=== PATIENT | male | born 1985 | race Caucasian/White ===

== ENCOUNTER 2020-04-09 07:21 | Emergency (ER) | payer MEDICAID ==
[~2020-04-09] VITALS: Ht 170.2 cm; Wt 99.8 kg
[2020-04-09 07:21] VITALS: BP_SYST 143
--- NOTE | 2020-04-09 07:21 | NUR ---
Placed in room 4. Placed on residential monitor, blood pressure machine and pulse oximeter. To gown for exam. Side rails up. Report given to ELMO Chaidez.
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
--- NOTE | 2020-04-09 07:24 | NUR ---
ER Dr. Rios at bedside examining patient.
[2020-04-09] MEDS ORDERED: MORPHINE 2 MG/ML INJ. SYRINGE IVP ONE (07:30)
[2020-04-09] MEDS ORDERED: NACL 0.9% 1,000 ML IV ONE (07:30)
--- NOTE | 2020-04-09 07:30 | NUR ---
# 22 gauge angiocath placed to LFA. Use of asceptic technique. Opsite placed over site. Blood return noted. Blood for lab drawn from site. Flushed with 10 cc of normal saline. No evidence of infiltration noted. Patient tolerated well.
--- NOTE | 2020-04-09 07:35 | NUR ---
Administered Fentanyl and Benadryl IVP as ordered by Dr. Penny. Patient tolerated the medications well. See eMAR for details.
[2020-04-09] MEDS ORDERED: fentaNYL CITRATE/PF 100 MCG/2 ML AMP IVP ONE (07:45)
[2020-04-09] MEDS ORDERED: DIPHENHYDRAMINE INJ 50 MG/ML VIAL IVP ONE (07:45)
--- NOTE | 2020-04-09 07:45 | NUR ---
[place] [employer] officer at bedside.
[2020-04-09] MEDS ORDERED: fentaNYL CITRATE/PF 100 MCG/2 ML AMP ONE (07:56)
[2020-04-09] MEDS ORDERED: DIPHENHYDRAMINE INJ 50 MG/ML VIAL ONE (07:56)
[2020-04-09 09:08] VITALS: BP_SYST 119
--- NOTE | 2020-04-09 09:10 | NUR ---
Report given to ELMO Villela of [facility].
--- NOTE | 2020-04-09 09:15 | NUR ---
Patient to be transferred to [facility]. Is being transferred due to higher level of care. Receiving facility has accepting physician and available space. ER physician has signed transfer form. Patient or responsible libertarian has agreed to transfer and signed form. Patient belongings inventoried and will be sent with patient. Copy of nursing notes, lab reports, EKG, Physicians Orders and X-rays to be sent with patient. Report called to ELMO Villela at receiving facility. Receiving physician is Dr. Araujo. [facility] service has been called for transfer. ETA is 30.
== END 2020-04-09 09:08 | disposition home or self-care (01) ==
LOC: SED 07:21
DX: S91.301A Unspecified open wound, right foot, initial encounter (principal); F12.90 Cannabis use, unspecified, uncomplicated; Z88.5 Allergy status to narcotic agent; Z88.6 Allergy status to analgesic agent; W34.09XA Accidental discharge from other specified firearms, initial encounter; Y93.89 Activity, other specified; Y92.89 Other specified places as the place of occurrence of the external cause; Y99.8 Other external cause status
CPT/HCPCS: 73630; 96374; 96375; 99285; J1200; J3010; J7030

== ENCOUNTER 2020-08-20 18:55 | Emergency (ER) | payer MEDICAID ==
[~2020-08-20] VITALS: Ht 167.6 cm; Wt 108.9 kg
[2020-08-20 18:55] VITALS: BP_SYST 143
--- NOTE | 2020-08-20 18:55 | NUR ---
BROUGHT IN BY [facility] AND [facility], PLACED IN BED #3 AND REPORT GIVEN TO PROFESSOR OF MATHEMATICS NURSES.
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
--- NOTE | 2020-08-20 19:10 | NUR ---
SHERIFF DUPREE REPORTS NO LONGER NEEDING OK TO BOOK. PATIENT IS NO LONGER IN CUSTODY.
--- NOTE | 2020-08-20 19:57 | NUR ---
ER at bedside examining patient.
--- NOTE | 2020-08-20 20:00 | NUR ---
PATIENT NOW DENIES ANY DRUG OR ALCOHOL USE. PATIENT STATES HE IS JUST TIRED. NOTIFIED.
--- NOTE | 2020-08-20 20:10 | NUR ---
# 18 gauge angiocath placed to RAC. Use of asceptic technique. Opsite placed over site. Blood return noted. Blood for lab drawn from site. Flushed with 10 cc of normal saline. No evidence of infiltration noted. Patient tolerated well.
--- NOTE | 2020-08-20 20:18 | NUR ---
Patient transported to radiology via [facility], accompanied by SY HICKS
[2020-08-20 20:30] LABS: BASOPHILS # (AUTO) 0.1 K/uL (0.0-0.2); BASOPHILS % (AUTO) 0.9 % (0.0-2.0); EOSINOPHILS # (AUTO) 0.2 K/uL (0.0-0.4); EOSINOPHILS % (AUTO) 2.4 % (0.0-4.0); HEMATOCRIT 41.3 % (36-54); HEMOGLOBIN 14.3 g/dL (14.0-18.0); LYMPHOCYTES # (AUTO) 1.7 K/uL (1.0-5.5); LYMPHOCYTES % (AUTO) 21.3 % (20.5-51.5); MEAN CORPUSCULAR HEMOGLOBIN 31 pg (27-31); MEAN CORPUSCULAR HGB CONC 35 % (32-36); MEAN CORPUSCULAR VOLUME 91 fL (79.0-98.0); MONOCYTES # (AUTO) 0.8 K/uL (0.0-1.0); MONOCYTES % (AUTO) 10.7 % (1.7-9.3); NEUTROPHILS # (AUTO) 5.1 K/uL (1.8-7.7); NEUTROPHILS % (AUTO) 64.7 % (40.0-70.0); PLATELET COUNT (AUTO) 420 K/uL (130-430); RED BLOOD CELL COUNT(AUTO) 4.55 MIL/uL (4.2-6.2); RED CELL DISTRIBUTION WIDTH 12.8 % (9.0-15.0); WHITE BLOOD COUNT (AUTO) 7.8 K/uL (4.8-10.8)
--- NOTE | 2020-08-20 20:37 | NUR ---
RETURNED FROM CT SCAN IN STABLE CONDITION
[2020-08-20 20:47] LABS: ANION GAP 3 (5-15); CALCIUM 8.9 mg/dL (8.4-11.0); CHLORIDE 100 mmol/L (98-107); CREATININE 1.06 mg/dL (0.55-1.30); GLUCOSE 102 mg/dL (70-99); POTASSIUM 3.4 mmol/L (3.5-5.1); SODIUM SERUM 137 mmol/L (136-145); UREA NITROGEN, BLOOD 10 mg/dL (8-21)
[2020-08-20 20:56] LABS: ALANINE AMINOTRANSFERASE 26 U/L (12-78); ALBUMIN 3.7 g/dL (3.4-4.8); ASPARTATE AMINOTRANSFERASE 41 U/L (10-37); TOTAL BILIRUBIN 0.5 mg/dL (0.0-1.0)
[2020-08-20 20:57] LABS: ALCOHOL, BLOOD < 3 mg/dL (<10); GFR AFRICAN AMERICAN 104 mL/min (>90)
[2020-08-20] MEDS ORDERED: NACL 0.9% 1,000 ML IV ONE (21:00)
--- NOTE | 2020-08-20 21:38 | NUR ---
# 16 FR In and Out catheter with use of sterile technique. Immediate return of 200 ml CLEAR YELLOW urine noted. Urine sample collected and sent to lab. Pt tolerated procedure WELL
--- NOTE | 2020-08-20 22:27 | NUR ---
Patient resting quietly. No acute distress noted. Vital signs within normal range.
[2020-08-20 22:53] LABS: BILIRUBIN,URINE NEGATIVE (NEGATIVE); BLOOD, URINE NEGATIVE (NEGATIVE); CLARITY/URINE CLEAR (CLEAR); COLOR,URINE YELLOW (YELLOW); GLUCOSE,URINE NEGATIVE (NEGATIVE); KETONES,URINE NEGATIVE (NEGATIVE); LEUKOCYTE ESTERASE ,URINE NEGATIVE (NEGATIVE); NITRITE, URINE NEGATIVE (NEGATIVE); PROTEIN URINE NEGATIVE (NEGATIVE); UROBILINOGEN,URINE 0.2 (0.2-1.0)
[2020-08-20 22:59] LABS: BARBITURATE, URINE NEGATIVE (NEG <=200); BENZODIAZEPINE, URINE POSITIVE (NEG <=150); CANNABINOID, URINE NEGATIVE (NEG <=50); COCAINE, URINE NEGATIVE (NEG <=150); METHAMPHETAMINES SCREEN,URINE POSITIVE (NEG <=500); OPIATE, URINE POSITIVE (NEG <=100); PHENCYCLIDINE SCREEN,URINE NEGATIVE (NEG <=25); UR TRICYCLIC ANTIDEPRESSANTS NEGATIVE (NEG <=300); URINE AMPHETAMINE POSITIVE (NEG <=500); URINE METHADONE NEGATIVE (NEG <=200); URINE OXYCODONE SCREEN NEGATIVE (NEG <=100); URINE PROPOXYPHENE SCREEN NEGATIVE (NEG <=300)
--- NOTE | 2020-08-21 00:42 | NUR ---
Patient resting quietly. No acute distress noted. Vital signs within normal range.
--- NOTE | 2020-08-21 02:41 | NUR ---
Patient resting quietly. No acute distress noted. Vital signs within normal range.
--- NOTE | 2020-08-21 04:42 | NUR ---
Patient resting quietly. Even and unlabored breathing. No acute distress noted. Vital signs stable.
--- NOTE | 2020-08-21 05:34 | NUR ---
PATIENT ABLE TO WALK BACK FORTH THROUGH ER HALLWAY WITH STEADY GAIT. NO SIGNS OF STUMBLING OR SWAYING. MD NOTIFIED.
--- NOTE | 2020-08-21 05:35 | NUR ---
SPOKE WITH PATIENTS MOM ANATOLIY TO ASK IF SHE WOULD BE ABLE TO PICK PATIENT UP FROM ER.
--- NOTE | 2020-08-21 05:46 | NUR ---
DR. GANN AT BEDSIDE ASSESSING PATIENT.
[2020-08-21 05:57] VITALS: BP_SYST 124
== END 2020-08-21 05:57 | disposition home or self-care (01) ==
LOC: SED 18:55
DX: R41.82 Altered mental status, unspecified (principal); F15.90 Other stimulant use, unspecified, uncomplicated; Z88.6 Allergy status to analgesic agent
CPT/HCPCS: 36415; 70450; 80053; 80307; 81003; 84484; 85025; 93005; 96360; 99285; G0482; J7030

== ENCOUNTER 2021-04-07 10:14 | Emergency (ER) | payer MEDICAID ==
[~2021-04-07] VITALS: Ht 167.6 cm; Wt 108.9 kg
[2021-04-07 11:02] VITALS: BP_SYST 142
[2021-04-07] MEDS ORDERED: KETOROLAC TROMETHAMINE 60 MG/2 ML VIAL IM ONE (14:15)
[2021-04-07 14:50] LABS: BASOPHILS # (AUTO) 0.1 K/uL (0.0-0.2); BASOPHILS % (AUTO) 0.7 % (0.0-2.0); EOSINOPHILS # (AUTO) 0.2 K/uL (0.0-0.4); EOSINOPHILS % (AUTO) 1.6 % (0.0-4.0); HEMATOCRIT 39.4 % (36-54); HEMOGLOBIN 13.7 g/dL (14.0-18.0); LYMPHOCYTES # (AUTO) 1.5 K/uL (1.0-5.5); LYMPHOCYTES % (AUTO) 12.8 % (20.5-51.5); MEAN CORPUSCULAR HEMOGLOBIN 32 pg (27-31); MEAN CORPUSCULAR HGB CONC 35 % (32-36); MEAN CORPUSCULAR VOLUME 93 fL (79.0-98.0); MONOCYTES # (AUTO) 1.4 K/uL (0.0-1.0); NEUTROPHILS # (AUTO) 8.6 K/uL (1.8-7.7); NEUTROPHILS % (AUTO) 72.9 % (40.0-70.0); PLATELET COUNT (AUTO) 363 K/uL (130-430); RED BLOOD CELL COUNT(AUTO) 4.25 MIL/uL (4.2-6.2); RED CELL DISTRIBUTION WIDTH 12.8 % (9.0-15.0); WHITE BLOOD COUNT (AUTO) 11.8 K/uL (4.8-10.8)
[2021-04-07 14:57] LABS: PROTHROMBIN TIME 10.6 SECS (9.5-12.5)
[2021-04-07 14:59] LABS: CALCIUM 8.8 mg/dL (8.4-11.0); CREATININE 1.05 mg/dL (0.55-1.30); POTASSIUM 3.5 mmol/L (3.5-5.1)
[2021-04-07 15:12] LABS: ALBUMIN 3.3 g/dL (3.4-4.8); TOTAL BILIRUBIN 0.9 mg/dL (0.0-1.0)
[2021-04-07 15:28] LABS: C-REACTIVE PROTEIN QUANT 20.1 mg/dL (0-0.5)
[2021-04-07] MEDS ORDERED: CLIN300C12 PO (15:30)
[2021-04-07] MEDS ORDERED: IBUP-1971 PO (15:30)
[2021-04-07] MEDS ORDERED: HYDR-3917 PO (15:30)
[2021-04-07 16:24] VITALS: BP_SYST 128
== END 2021-04-07 16:24 | disposition home or self-care (01) ==
LOC: SED 10:14
DX: L03.113 Cellulitis of right upper limb (principal); L03.115 Cellulitis of right lower limb; Z88.5 Allergy status to narcotic agent; Z88.6 Allergy status to analgesic agent; Z79.899 Other long term (current) drug therapy
CPT/HCPCS: 36415; 73090; 80053; 83605; 85025; 85610; 85730; 86140; 96372; 99284; J1885

== ENCOUNTER 2021-04-10 09:33 | Emergency (ER) | payer MEDICAID ==
[~2021-04-10] VITALS: Ht 167.6 cm; Wt 108.9 kg
[~2021-04-10 09:33] MED LIST: CLIN300C12 PO; HYDR-3917 PO; IBUP-1971 PO
[2021-04-10 09:43] VITALS: BP_SYST 135
--- NOTE | 2021-04-10 09:47 | NUR ---
Patient to ER bed 07 to gown for evaluation. Side rails up.
--- NOTE | 2021-04-10 09:50 | NUR ---
C/C: PATIENT STATES HE WAS PREVISOULY SEEN IN THE ER A COUPLE WEEKS AGO AND WAS GIVEN ABX FOR REDNESS AND SWELLING TO E. HE WOKE THIS MORNING AND NOTED HIS LEG WAS SWELLING AGAIN WITH NOTICEABLE BLISTERING.
[2021-04-10] MEDS ORDERED: VANCOMYCIN HCL 1 MG in D5W 250 ML IV ONE (10:15)
--- NOTE | 2021-04-10 10:29 | NUR ---
LAB: AT BEDSIDE PERFORMING LAB DRAW.
[2021-04-10] MEDS ORDERED: VANCOMYCIN HCL 1000 MG/VIAL IV ONE (10:30)
--- NOTE | 2021-04-10 10:34 | NUR ---
PIV: 20G PIV STARTED TO RIGHT AC COVERED WITH DRESSING, CLEAN DRY AND INTACT, NO SIGNS OF INFLTRATION NOTED.
--- NOTE | 2021-04-10 10:47 | NUR ---
RX: GIVEN IV PER ORDER RUNNING OVER PUMP.
[2021-04-10 10:50] LABS: BASOPHILS % (AUTO) 0.4 % (0.0-2.0); EOSINOPHILS # (AUTO) 0.2 K/uL (0.0-0.4); EOSINOPHILS % (AUTO) 3.1 % (0.0-4.0); HEMATOCRIT 36.9 % (36-54); HEMOGLOBIN 12.7 g/dL (14.0-18.0); LYMPHOCYTES # (AUTO) 0.8 K/uL (1.0-5.5); LYMPHOCYTES % (AUTO) 10.5 % (20.5-51.5); MEAN CORPUSCULAR HEMOGLOBIN 32 pg (27-31); MEAN CORPUSCULAR HGB CONC 35 % (32-36); MEAN CORPUSCULAR VOLUME 92 fL (79.0-98.0); MONOCYTES # (AUTO) 0.7 K/uL (0.0-1.0); MONOCYTES % (AUTO) 9.9 % (1.7-9.3); NEUTROPHILS # (AUTO) 5.6 K/uL (1.8-7.7); NEUTROPHILS % (AUTO) 76.1 % (40.0-70.0); PLATELET COUNT (AUTO) 407 K/uL (130-430); RED CELL DISTRIBUTION WIDTH 12.5 % (9.0-15.0); WHITE BLOOD COUNT (AUTO) 7.3 K/uL (4.8-10.8)
[2021-04-10 10:56] LABS: C-REACTIVE PROTEIN QUANT 8.6 mg/dL (0-0.5)
[2021-04-10 10:57] LABS: CALCIUM 8.9 mg/dL (8.4-11.0); CREATININE 0.98 mg/dL (0.55-1.30); POTASSIUM 3.5 mmol/L (3.5-5.1); PROTHROMBIN TIME 10.4 SECS (9.5-12.5)
[2021-04-10 11:10] LABS: ALBUMIN 2.8 g/dL (3.4-4.8); TOTAL BILIRUBIN 0.4 mg/dL (0.0-1.0)
[2021-04-10] MEDS ORDERED: SULF1TAB48 PO ×2 (11:12)
[2021-04-10] MEDS ORDERED: CIPR500T5 PO (12:08)
[2021-04-10 12:24] VITALS: BP_SYST 118
--- NOTE | 2021-04-10 12:25 | NUR ---
Patient given written and verbal discharge instructions and verbalizes understanding. ER MD discussed with patient the results and treatment provided. Patient in stable condition. ID arm band removed. IV catheter removed intact and dressing applied, no active bleeding. Rx of ABX given. Patient educated on pain management and to follow up with PMD. Pain Scale 0/10 Opportunity for questions provided and answered. Medication side effect fact sheet provided.
== END 2021-04-10 12:25 | disposition home or self-care (01) ==
LOC: SED 09:33
DX: L03.115 Cellulitis of right lower limb (principal); Z79.899 Other long term (current) drug therapy
CPT/HCPCS: 36415; 73590; 80053; 83605; 85025; 85610; 86140; 87040; 93971; 96374; 99285; J3370

== ENCOUNTER 2021-06-09 17:09 | Emergency (ER) | payer MEDICAID ==
[~2021-06-09] VITALS: Ht 167.6 cm; Wt 99.8 kg
[~2021-06-09 17:09] MED LIST changes: +CIPR500T5 PO
--- NOTE | 2021-06-09 17:09 | NUR ---
BROUGHT IN BY [facility], TRIAGED AND PLACED IN BED #3. REPORT GIVEN TO ANGIE FUCHS WAS ACCOMPANIED BY [place] [employer], OFFICER AVERY STATES HE SPOKE WITH MOTHER OF PT, ANATOLIY, PHONE NUMBER AT [phone].
[2021-06-09 17:10] VITALS: BP_SYST 101
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
--- NOTE | 2021-06-09 17:18 | NUR ---
ER DR. DON AT THE BEDSIDE EXAMINING PT
--- NOTE | 2021-06-09 19:23 | NUR ---
REPORT GIVEN TO ELMO MARTIN FOR CONTINUING CARE
--- NOTE | 2021-06-09 20:20 | NUR ---
Spoke with patient 's family ([place]-his mother) and update patient's status.
--- NOTE | 2021-06-09 23:02 | NUR ---
Patient resting quietly. No acute distress noted. Vital signs within normal range.
--- NOTE | 2021-06-10 00:38 | NUR ---
ER Dr. Givens at bedside examining patient.
[2021-06-10] MEDS ORDERED: NACL 0.9% 1,000 ML IV ONE (00:45)
--- NOTE | 2021-06-10 02:13 | NUR ---
Patient resting quietly. No acute distress noted. Vital signs within normal range.
[2021-06-10] MEDS ORDERED: NALO4SPR NS (02:20)
--- NOTE | 2021-06-10 03:02 | NUR ---
Patient resting quietly. No acute distress noted. Vital signs within normal range.
--- NOTE | 2021-06-10 04:29 | NUR ---
Patient resting quietly. No acute distress noted. Vital signs within normal range.
--- NOTE | 2021-06-10 05:42 | NUR ---
Spoke with patient ' family (mother) , she will finish her job and will come to pick him up.
[2021-06-10 06:01] VITALS: BP_SYST 120
--- NOTE | 2021-06-10 06:01 | NUR ---
Patient given written and verbal discharge instructions and verbalizes understanding. ER MD discussed with patient the results and treatment provided. Patient in stable condition. ID arm band removed. IV catheter removed intact and dressing applied, no active bleeding. Rx of Narcan given. Patient educated on pain management and to follow up with PMD. Pain Scale 0/10. Opportunity for questions provided and answered. Medication side effect fact sheet provided.
== END 2021-06-10 06:01 | disposition home or self-care (01) ==
LOC: SED 17:09
DX: F11.10 Opioid abuse, uncomplicated (principal); Z79.899 Other long term (current) drug therapy
CPT/HCPCS: 93005; 96360; 99285; J7030